=== PATIENT | female | born 2000 | race Two or more races ===

== ENCOUNTER 2023-01-23 20:18 | Emergency (ER) | payer OTHER ==
[~2023-01-23] VITALS: Ht 157.5 cm; Wt 57.0 kg
[2023-01-23 20:26] VITALS: BP 92/57
[2023-01-23] MEDS ORDERED: ACETAMINOPHEN 325MG TABLET PO ONE (23:00)
== END 2023-01-24 02:24 | disposition left against medical advice (07) ==
LOC: ER 20:30
DX: Z53.21 Procedure and treatment not carried out due to patient leaving prior to being seen by health care provider (principal)
CPT/HCPCS: 99281